=== PATIENT | male | born 2000 | race African-American/Black ===

== ENCOUNTER 2021-09-18 00:56 | Emergency (ER) | payer OTHER ==
[2021-09-18 01:53] VITALS: BP 127/69; PULSE 65; RESP 17; TEMP 98.1; BMI 23.0
[2021-09-18 03:36] LABS: EPI CELLS 3 /uL (0-25.1); HYALINE CASTS 2 /uL (0-3.1); URINE APPEARANCE CLOUDY; URINE BACTERIA 63 /uL (0-1359); URINE BILIRUBIN NEGATIVE (NEGATIVE); URINE COLOR DK YELLOW; URINE GLUCOSE (UA) NEGATIVE (NEGATIVE); URINE KETONE TRACE (NEGATIVE); URINE LEUK ESTERASE 2+ (NEGATIVE); URINE NITRITE NEGATIVE (NEGATIVE); URINE PROTEIN 1+ (NEGATIVE); URINE RBC 39 /uL (0-23.9); URINE WBC 3593 /uL (0-25.8)
[2021-09-18] MEDS ORDERED: LIDOCAINE HCL 1%, 10 MG/ML (20ML VIAL) ONE (04:21)
[2021-09-18] MEDS ORDERED: LIDOCAINE HCL 1%, 10 MG/ML (50 mL VIAL) INF ONE (04:30)
== END 2021-09-18 04:32 | disposition home or self-care (01) ==
LOC: JER 00:56
PROC: 3E023GC Introduction of Other Therapeutic Substance into Muscle, Percutaneous Approach (ICD-10-PCS; principal; 2021-09-18)
DX: N34.2 Other urethritis (principal)
CPT/HCPCS: 36415; 81003; 87086; 87491; 87591; 99284-25

== ENCOUNTER 2022-02-02 20:52 | Emergency (ER) | payer OTHER ==
[2022-02-02 21:06] VITALS: BP 124/80; PULSE 62; RESP 20; TEMP 97.6; BMI 21.1
[2022-02-02 23:18] LABS: EPI CELLS 1 /uL (0-25.1); HYALINE CASTS 81 /uL (0-3.1); URINE APPEARANCE CLOUDY; URINE BACTERIA 17 /uL (0-1359); URINE BILIRUBIN NEGATIVE (NEGATIVE); URINE COLOR YELLOW; URINE GLUCOSE (UA) NEGATIVE (NEGATIVE); URINE KETONE TRACE (NEGATIVE); URINE LEUK ESTERASE 2+ (NEGATIVE); URINE NITRITE NEGATIVE (NEGATIVE); URINE PROTEIN TRACE (NEGATIVE); URINE RBC 15 /uL (0-23.9); URINE WBC 811 /uL (0-25.8)
[2022-02-02] MEDS ORDERED: AZITHROMYCIN 500 MG TABLET PO ONE (23:37)
[2022-02-02] MEDS ORDERED: AZITHROMYCIN 250 MG TABLET ONE (23:41)
[2022-02-02] MEDS ORDERED: LIDOCAINE HCL/PF 1% SDV 5ML VIAL ONE (23:54)
== END 2022-02-03 00:01 | disposition home or self-care (01) ==
LOC: JER 20:52 → JERFT 20:52 → JER 02-03 00:01
DX: A54.9 Gonococcal infection, unspecified (principal); A74.9 Chlamydial infection, unspecified
CPT/HCPCS: 36415; 81003; 87086; 87491; 87591; 99283-25